=== PATIENT | female | born 1970 | race Caucasian/White ===

== ENCOUNTER 2022-02-21 14:07 | Emergency (ER) | payer OTHER ==
[~2022-02-21] VITALS: Ht 160 cm; Wt 77.1 kg
[~2022-02-21 14:07] MED LIST: ADVAIR 5001 DISK W/1 IH; ALBUTEROL17 G1 IH; TUSNEL CAPSULE1 CAP PO
[2022-02-21] MEDS ORDERED: ZESTRIL2.5 MG (14:16)
[2022-02-21] MEDS ORDERED: CELEBREX100 MG PO (18:47)
== END 2022-02-21 19:22 ==
LOC: ER 14:07
DX: S63.205A Unspecified subluxation of left ring finger, initial encounter (principal); X58.XXXA Exposure to other specified factors, initial encounter; Y93.9 Activity, unspecified; Y92.9 Unspecified place or not applicable; Y99.9 Unspecified external cause status; M62.40 Contracture of muscle, unspecified site; M25.542 Pain in joints of left hand; M79.645 Pain in left finger(s); I10 Essential (primary) hypertension; E11.9 Type 2 diabetes mellitus without complications

== ENCOUNTER 2022-10-06 16:46 | Emergency (ER) | payer OTHER ==
[~2022-10-06] VITALS: Ht 160 cm; Wt 77.1 kg
[~2022-10-06 16:46] MED LIST changes: +CELEBREX100 MG PO; +ZESTRIL2.5 MG
[2022-10-07] MEDS ORDERED: VALACYCLOVIR1000 MG PO (01:05)
== END 2022-10-07 02:26 | disposition home or self-care (01) ==
LOC: ER 16:46 → EDBD 16:49 → ER 10-07 02:26
DX: G51.0 Bell's palsy (principal); Z20.822 Contact with and (suspected) exposure to COVID-19

== ENCOUNTER 2023-06-25 07:11 | Outpatient (CLI) | payer OTHER ==
[~2023-06-25 07:11] MED LIST changes: +VALACYCLOVIR1000 MG PO
== END 2023-06-25 07:12 | disposition home or self-care (01) ==
LOC: NUCLEAR 07:11
PROVIDERS: ATTEND Internal Medicine
DX: I25.119 Atherosclerotic heart disease of native coronary artery with unspecified angina pectoris (principal); R07.9 Chest pain, unspecified; I11.9 Hypertensive heart disease without heart failure; E78.2 Mixed hyperlipidemia

== ENCOUNTER 2023-11-19 17:27 | Emergency (ER) | payer OTHER ==
[~2023-11-19] VITALS: Ht 152.4 cm; Wt 77.1 kg
[2023-11-19] MEDS ORDERED: GLIPIZIDE XL10 MG PO (18:35)
[2023-11-19] MEDS ORDERED: JANUMET 50-1,01 EACH PO (18:35)
[2023-11-19 19:47] LABS: PH,URINE 5.5 (5.0-8.0); URINE APPEARANCE Clear; URINE BILIRRUBIN Negative (NEGATIVE); URINE BLOOD Negative; URINE COLOR Yellow; URINE LEUKOCYTE Negative; URINE NITRATE Negative; URINE PROTEIN Negative (NEGATIVE); URINE UROBILINOGEN 0.2 E.U./dl
[2023-11-19 19:51] LABS: URINE BACTERIA 268.1 uL (0.0-1933); URINE EPITHELIAL CELLS 2.4 uL (0.0-38.8); URINE WBC 2.1 uL (0.0-23.2)
[2023-11-19 19:52] LABS: URINE GLUCOSE >=1000 MG/DL (NEGATIVE); URINE RBC 1.4 uL (0.0-20.8)
[2023-11-19 20:03] LABS: HEMATOCRIT 37.6 % (36.0-45.00); HEMOGLOBIN 12.8 g/dL (12.0-15.00); MEAN CELL VOLUME 83.7 fL (80.00-100.00); MEAN CORPUSCULAR HEMOGLOBIN 28.5 pg (27.00-32.0); MEAN CORPUSCULAR HGB CONC 34.1 g/dl (32.0-36.0); PLATELET COUNT 374 K/uL (150-450); RED BLOOD COUNT 4.49 M/uL (4.00-6.00); RED CELL DISTRIBUTION WIDTH 13.8 % (11.5-14.5)
[2023-11-19 20:20] LABS: INR 0.98; PROTHROMBIN TIME 10.3 SECONDS (9.0-11.5)
[2023-11-19 20:24] LABS: CALCIUM 9.8 mg/dL (8.5-10.1); CREATININE SERUM 0.87 mg/dL (0.55-1.02); GFR 68.37; POTASSIUM 3.88 mEq/L (3.5-5.1)
[2023-11-19] MEDS ORDERED: NORFLEX100MG PO (21:31)
[2023-11-19] MEDS ORDERED: DICLOFENAC POTA50 MG PO (21:31)
== END 2023-11-19 21:38 | disposition home or self-care (01) ==
LOC: ER 17:28
PROVIDERS: General Practice
DX: R10.84 Generalized abdominal pain (principal); M54.9 Dorsalgia, unspecified

== ENCOUNTER 2024-08-15 14:05 | Emergency (ER) | payer OTHER ==
[~2024-08-15] VITALS: Ht 160 cm; Wt 77.1 kg
[~2024-08-15 14:05] MED LIST changes: +DICLOFENAC POTA50 MG PO; +GLIPIZIDE XL10 MG PO; +JANUMET 50-1,01 EACH PO; +NORFLEX100MG PO
[2024-08-15] MEDS ORDERED: ZOLOFT50 MG PO (15:03)
[2024-08-15] MEDS ORDERED: 0.9 % SODIUM CHLORIDE 1,000 ML IV STA (15:19)
[2024-08-15] MEDS ORDERED: FAMOTIDINE/PF 20 MG/2 ML VIAL IV ONE (15:30)
[2024-08-15] MEDS ORDERED: METOCLOPRAMIDE HCL 5 MG/ML VIAL IV ONE (15:30)
[2024-08-15 16:36] LABS: HEMATOCRIT 46.3 % (36.0-45.00); HEMOGLOBIN 15.7 g/dL (12.0-15.00); MEAN CELL VOLUME 84.7 fL (80.00-100.00); MEAN CORPUSCULAR HEMOGLOBIN 28.8 pg (27.00-32.0); PLATELET COUNT 363 K/uL (150-450); RED BLOOD COUNT 5.46 M/uL (4.00-6.00); RED CELL DISTRIBUTION WIDTH 13.5 % (11.5-14.5)
[2024-08-15 17:05] LABS: INR 1.05; PROTHROMBIN TIME 11.4 SECONDS (9.0-11.5)
[2024-08-15 17:10] LABS: ALBUMIN 4.5 gm/dL (3.4-5.0); BILIRUBIN TOTAL 1.47 mg/dL (0.3-1.2); CREATININE SERUM 0.82 mg/dL (0.55-1.02); GFR 72.92; GLOBULINA 4.1 G/DL (2.4-3.5); POTASSIUM 3.84 mEq/L (3.5-5.1); TOTAL PROTEIN 8.6 gm/dL (6.4-8.2)
== END 2024-08-15 18:34 | disposition home or self-care (01) ==
LOC: ER 14:05
PROVIDERS: Emergency Medicine
DX: R10.13 Epigastric pain (principal); R11.10 Vomiting, unspecified; E11.9 Type 2 diabetes mellitus without complications; Z79.84 Long term (current) use of oral hypoglycemic drugs; Z87.09 Personal history of other diseases of the respiratory system

== ENCOUNTER 2024-11-06 13:50 | Emergency (ER) | payer OTHER ==
[~2024-11-06] VITALS: Ht 160 cm; Wt 72.6 kg
[~2024-11-06 13:50] MED LIST changes: +ZOLOFT50 MG PO
[2024-11-06] MEDS ORDERED: ORPHENADRINE CITRATE 30 MG/ML AMPUL IM ONE (16:00)
[2024-11-06] MEDS ORDERED: KETOROLAC TROMETHAMINE 60 MG VIAL IM ONE (16:00)
[2024-11-06] MEDS ORDERED: KETO10TA2 PO (19:16)
== END 2024-11-06 20:44 | disposition home or self-care (01) ==
LOC: ER 13:52
DX: S52.121A Displaced fracture of head of right radius, initial encounter for closed fracture (principal); W19.XXXA Unspecified fall, initial encounter; Y93.89 Activity, other specified; Y92.098 Other place in other non-institutional residence as the place of occurrence of the external cause; Y99.8 Other external cause status; I10 Essential (primary) hypertension; E11.9 Type 2 diabetes mellitus without complications